=== PATIENT | male | born 2000 | race Caucasian/White ===

== ENCOUNTER 2021-02-21 15:25 | Emergency (ER) | payer OTHER ==
[2021-02-21 15:49] VITALS: BP 123/71; PULSE 71; TEMP 98; BMI 29.8
== END 2021-02-21 16:05 | disposition home or self-care (01) ==
LOC: FER 15:25
DX: S60.414A Abrasion of right ring finger, initial encounter (principal); V00.131A Fall from skateboard, initial encounter
CPT/HCPCS: 99281-25